=== PATIENT | female | born 1965 ===

== ENCOUNTER 2017-09-22 07:05 | Day surgery (SDC) | payer OTHER ==
[~2017-09-22 07:05] MED LIST: ADULT ASPIRIN R81 MG PO; ATORVASTATIN CA20 MG PO; BISOPROLOL PO
== END 2017-09-22 17:05 | disposition home or self-care (01) ==
LOC: CIR.AMB 07:05
DX: N84.0 Polyp of corpus uteri (principal); N92.1 Excessive and frequent menstruation with irregular cycle